=== PATIENT | female | born 2005 | race Caucasian/White ===

== ENCOUNTER 2024-12-18 01:28 | Emergency (ER) | payer OTHER, SELFPAY ==
[2024-12-18 01:30] VITALS: BP 115/79
--- NOTE | 2024-12-18 02:36 | ED.GENMED ---
History of Present Illness
General
Chief Complaint: Abdominal Symptoms
Source: patient
Exam Limitations: none
Time Seen by Provider: 12/18/24 01:35
Nursing documentation reviewed up to this point in time: agreed with
History of Present Illness
History of Present Illness:
This a pleasant 19-year-old female that presents to the emergency department after a night out drinking. She states that she was handed a drink by someone at a bar. She reports that she 'passed out 'after that. Denies any head injury. States
that she had some diffuse abdominal pain and vomiting but that has resolved. She states that she feels tired but has no other complaints at this time. She is accompanied by a friend. She does live with 3 other girls in the dorm. Denies any
previous medical history.
Review of Systems
Review of Systems
Allergies reviewed?: Yes
All Other Systems: ROS reviewed and negative except as documented in HPI and ROS
Constitutional: Reports no symptoms
EENT: Reports no symptoms
Respiratory: Reports no symptoms
Cardiac: Reports no symptoms
ABD/GI: Reports no symptoms
: Reports no symptoms
Musculoskeletal: Reports no symptoms
Skin: Reports no symptoms
Neurological: Reports no symptoms
Endocrine: Reports no symptoms
Hematologic/Lymphatic: Reports no symptoms
Psychiatric: Reports no symptoms
Phy Exam
General Physical Exam
General Presentation: mild distress and other (Somnolent)
General age: appears stated age
General Skin: warm and dry
General Habitus: normal
General Mental: alert
General Hydration: appears well hydrated
ENT Exam
ENT Exam: EOMI, pharynx normal, neck supple and normocephalic
Eye Exam
Eye Exam: PERRL, cornea clear and conjunctiva normal
Cardiovascular Exam
Cardiovascular Exam: regular rate/rhythm, no edema, no murmur and normal peripheral pulses
Pulmonary Exam
Pulmonary Exam: lungs clear, no respiratory distress, no rales, no crackles, no rhonchi, no stridor, no wheezing and no cough
Gastrointestinal Exam
Gastrointestinal Exam: normal bowel sounds, non tender, soft, no organomegaly, no pulsatile mass and non distended
Neurological Exam
Neurological Exam: alert, oriented x3, no motor deficits and speech normal
Musculoskeletal Exam
Musculoskeletal Exam: full ROM and no edema
Skin Exam
Skin Exam: normal color, warm/dry, no rash and no petechia
Psychiatric Exam
Psychiatric Exam: normal mood/affect
Course
Vital Signs
Initial and Last Documented VS:
Initial Vital Signs
Temp Pulse Resp BP Pulse Ox
98.5 F 84 16 115/79 99
12/18/24 01:30 12/18/24 01:30 12/18/24 01:30 12/18/24 01:30 12/18/24 01:30
Last Documented Vital Signs
Temp Pulse Resp BP Pulse Ox
98.5 F 84 16 115/79 99
12/18/24 01:30 12/18/24 01:30 12/18/24 01:30 12/18/24 01:30 12/18/24 01:30
*Critical Care Note
Total Time (30-74mins, 75-104mins- exclusive of procedures): Not Applicable
ED Attending Note
-
Portions of this chart may have been created with voice recognition software.� Occasional wrong word or��sound alike� substitutions may have occurred due to the inherent limitations of voice recognition software.
Discharge Plan
Departure
Referrals:
Chyna Aquino MD [Family Provider] -
Interventions
Interventions:
*General Assessment Last Done: 12/18/24 01:30
*ED COVID-19 Vaccine History Last Done: 12/18/24 01:30
Discharge Date and Time
Print Language: ESTONIAN
[2024-12-18 03:37] VITALS: BP 100/50
[2024-12-18 05:32] VITALS: BP 107/53
== END 2024-12-18 06:24 | disposition home or self-care (01) ==
LOC: EMR 01:28
PROVIDERS: EMERGENCY PHYSICIAN Student in an Organized Health Care Education/Training Program; FAMILY PHYSICIAN Pediatrics
DX: F10.129 Alcohol abuse with intoxication, unspecified (principal)
CPT/HCPCS: 99282

== ENCOUNTER 2025-10-14 09:59 | Emergency (ER) | payer OTHER, SELFPAY ==
[2025-10-14 10:00] VITALS: BP 106/83
--- NOTE | 2025-10-14 10:15 | EDRN ---
Roldan Low PA in room w/pt at this time.
--- NOTE | 2025-10-14 10:21 | ED.GENMED ---
History of Present Illness
General
Chief Complaint: Musculo-Skeletal Complaint
Source: patient
Time Seen by Provider: 10/14/25 10:07
History of Present Illness
History of Present Illness:
19-year-old female presenting to the emergency department for evaluation after experiencing right-sided rib pain in the anterolateral portion of the right chest wall just inferior to the right breast, symptoms started yesterday shortly after a
basketball game, patient does not recall any specific time where she may have injured the rib. Pain worsens with deep inspiration but also worsens to palpation and movement. She did not take anything for the pain. Denies any PE risk factors.
Denies any cough, shortness of breath, hemoptysis, lower extremity edema or any other concerns.
Past History
Past History
ED Past Medical History: Psychiatric
ED Past Surgical History: None
Social History
Tobacco: Non-smoker
Alcohol: Occasional
Drug: None
Personal: Single
Living: with roommate
Employment: Student
Review of Systems
Review of Systems
All Other Systems: ROS reviewed and negative except as documented in HPI and ROS
Phy Exam
Physical Exam
Physical Exam:
GENERAL: Alert , in no apparent distress
HEAD: Normocephalic atraumatic
EYE: conjunctiva clear
NECK: Supple
ENT: o/p clr, mmm.
CARDIAC: Regular rate and rhythm
LUNGS: Clear breath sounds bilaterally, no acute respiratory distress, no wheezes/rales/rhonchi
NEUROLOGICAL: Alert and oriented
SKIN: Warm and dry, skin intact. Chaperoned by ED RN KI: No rash/overlying erythema
MUSCULOSKELETAL: well perfused.
PSYCH: Normal and appropriate interaction.
Scores
Heart Failure Risk
Heart Failure Risk Score: Not Applicable
Heart Score for Chest Pain Patients
STEMI patient?: Not applicable
Withdrawal Assessment of Alcohol
Withdrawal Assessment Completed?: Not applicable
Course
Orders/Labs/Results
Orders:
Orders
10/14/25 10:19
CR Ribs-right 3 Vw W/pa Chest* Urgent
Comment:
Reason For Exam: right sided rib pain around breast area
Vital Signs
Initial and Last Documented VS:
Initial Vital Signs
Temp Pulse Resp BP Pulse Ox
98.0 F 89 16 106/83 98
10/14/25 10:00 10/14/25 10:00 10/14/25 10:00 10/14/25 10:00 10/14/25 10:00
Last Documented Vital Signs
Temp Pulse Resp BP Pulse Ox
98.0 F 86 16 114/75 98
10/14/25 10:00 10/14/25 10:27 10/14/25 10:27 10/14/25 10:27 10/14/25 10:27
MDM/Problems Addressed
Differential Diagnosis Includes:
Rib contusion
Muscle strain
PTX
Costochondritis
Pleurisy
PE considered however no risk factors
Shingles
MDM/Problems Addressed:
19 ER for evaluation of right-sided nontraumatic rib pain, symptoms started yesterday shortly after a basketball game the patient does not recall any specific injury. Patient is hemodynamically stable and in no acute distress. Will order x-ray.
Patient declines anything for pain. Anticipate discharge.
*Radiology
Radiology exam reviewed: radiology read reviewed
*Pulse Oximetry
SaO2: 98
Oxygen Mode of Delivery: Room air
Patient hypoxic: no
*Critical Care Note
Total Time (30-74mins, 75-104mins- exclusive of procedures): Not Applicable
Patient Management
Escalation/DeEscalation of care consider admission/obs:
Rib series without any acute abnormalities. Stable for d/c home
ED Attending Note
-
Portions of this chart may have been created with voice recognition software.� Occasional wrong word or��sound alike� substitutions may have occurred due to the inherent limitations of voice recognition software.
Discharge Plan
Departure
Patient Disposition: Home (Routine Discharge)
Date of Disposition: 10/14/25
Time of Disposition: 10:52
Patient with high blood pressure during this ER visit?: No
Discharge Problem:
Rib pain on right side
Instructions: Rib injury in adults
Interventions
Interventions:
*Risk Screen - Suicide Last Done: 10/14/25 10:00
*General Assessment Last Done: 10/14/25 10:24
*Neglect/Abuse Screening Last Done: 10/14/25 10:24
*ED- Fall Risk Assessment Last Done: 10/14/25 10:24
*ED COVID-19 Vaccine History Last Done: 10/14/25 10:24
*ED Influenza Vaccine History Last Done: 10/14/25 10:24
*Nursing Disposition Last Done: 10/14/25 11:01
ED-Musculoskeletal Assessment Last Done: 10/14/25 10:24
Discharge Date and Time
Discharge Date/Time: 10/14/25 11:01
Print Language: HONDURAN
[2025-10-14 10:27] VITALS: BP 114/75
== END 2025-10-14 11:01 | disposition home or self-care (01) ==
LOC: EMR 09:59
PROVIDERS: EMERGENCY PHYSICIAN Student in an Organized Health Care Education/Training Program
DX: R07.89 Other chest pain (principal)
CPT/HCPCS: 99283; 71101

== ENCOUNTER 2025-10-15 14:01 | Emergency (ER) | payer OTHER, SELFPAY ==
[2025-10-15 14:02] VITALS: BP 119/80
[2025-10-15 14:24] LABS: Hematocrit 39.3 % (37.0-47.0); Hemoglobin 13.0 g/dL (12.0-16.0); Mean Corp Hgb Conc. 33.1 g/dL (33.0-37.0); Mean Corpuscular Volume 92.5 fL (81.0-99.0); Nucleated Red Blood Cells % 0 %; Platelet Count 249 10^3/uL (130-400); Red Cell Dist. Width 12.6 % (11.5-14.5)
[2025-10-15 14:33] LABS: HCG, Serum Qualitative Screen Negative
[2025-10-15 14:37] LABS: ALT (SGPT) 19 U/L (0-35); AST (SGOT) 26 U/L (14-36); Albumin 4.8 g/dl (3.5-5.0); Alkaline Phosphatase 83 U/L (38-126); Blood Urea Nitrogen 8 mg/dl (7-17); Calcium 9.4 mg/dl (8.4-10.2); Carbon Dioxide 23 mmol/L (22-30); Chloride 106 mmol/L (98-107); Glucose 93 mg/dl (70-99); Lipase 85 U/L (23-300); Potassium 4.1 mmol/L (3.5-5.1); Sodium 137 mmol/L (135-145); Total Protein 7.8 g/dl (6.3-8.2); eGFR > 60.00
[2025-10-15 17:04] VITALS: BMI 22.3
--- NOTE | 2025-10-15 17:34 | ED.GENMED ---
History of Present Illness
General
Chief Complaint: Abdominal Pain
Source: patient
Exam Limitations: none
Time Seen by Provider: 10/15/25 16:39
Nursing documentation reviewed up to this point in time: agreed with
History of Present Illness
History of Present Illness:
19-year-old female presenting to the emergency department today with concerns of right sided abdominal pain. Previously had an injury that she believes to her right sided rib here yesterday after being hit while playing basketball now with pain to
the right lower abdomen. Denies any nausea vomiting diarrhea or changes in urination.
Past History
Past History
ED Past Medical History: Psychiatric
ED Past Surgical History: None
Social History
Tobacco: Non-smoker
Alcohol: Occasional
Drug: None
Personal: Single
Living: with roommate
Employment: Student
Review of Systems
Review of Systems
Allergies reviewed?: Yes
All Other Systems: ROS reviewed and negative except as documented in HPI and ROS
Phy Exam
Physical Exam
Physical Exam:
GENERAL: Alert , in no apparent distress
EYE: pupils equal and reactive
NECK: Supple, no significant adenopathy.
ENT: o/p clr, mmm.
CARDIAC: Regular rate and rhythm .
LUNGS: Clear breath sounds bilaterally, no acute respiratory distress, no wheezes/rales/rhonchi
ABDOMEN: Tender palpation throughout the right side of the abdomen maximal to the right lower quadrant. No overlying skin changes.
NEUROLOGICAL: Alert and oriented, no focal neuro deficits
SKIN: Warm and dry, skin intact.
MUSCULOSKELETAL: No edema, well perfused.
PSYCH: Normal and appropriate interaction.
Course
Orders/Labs/Results
Orders:
Orders
10/15/25 14:05
Test Result ONCE
10/15/25 14:11
CBC/With Diff [Complete Blood Count/With Diff] Urgent
CMP [Comprehensive Metabolic Panel] Urgent
Lipase Urgent
, Serum Qualitative Screen [HCG, Serum Qualitative Screen] Urgent
10/15/25 16:52
Test Result ONCE
10/15/25 16:53
CT Abd/Pel (IV only)-DH only Urgent
Comment:
Reason For Exam: right sided abd pain, trauma yesterday
10/15/25 18:22
Urinalysis Reflex To Culture Urgent
Date Specimen was Collected: 10/15/25
Time Specimen was Collected: 17:03
Urine Microscopic Reflex Cult Urgent
Abnormal Lab Results
10/15/25 10/15/25
14:11 18:22
Absolute Neuts (auto) 7.2 H 10^3/uL
(1.4-6.5)
Absolute Lymphs (auto) 1.0 L 10^3/uL
(1.2-3.4)
Neutrophils % 81.7 H %
(42.2-75.2)
Lymphocytes % 11.4 L %
(20.5-51.1)
Urine Ketones 1+ A
(Negative)
Ur Occult Blood Reflex 2+ A
(Negative)
Urine Urobilinogen 2+ A
(Neg - 1+)
Urine RBC 3-6 A /HPF
(0-2)
Urine Bacteria (Reflex) Few A
(Negative)
Urine Albumin (Reflex) 1+ A
(Neg - Trace)
10/15/25 14:11
10/15/25 14:11
Vital Signs
Initial and Last Documented VS:
Initial Vital Signs
Temp Pulse Resp BP Pulse Ox
98.2 F 85 15 119/80 98
10/15/25 14:02 10/15/25 14:02 10/15/25 14:02 10/15/25 14:02 10/15/25 14:02
Last Documented Vital Signs
Temp Pulse Resp BP Pulse Ox
98.5 F 87 18 118/75 99
10/15/25 18:09 10/15/25 20:03 10/15/25 20:03 10/15/25 20:03 10/15/25 20:03
MDM/Problems Addressed
MDM/Problems Addressed:
19-year-old female presenting to the emergency department today with concerns of right side abdominal pain after getting a right lower rib injury yesterday while playing basketball. Reproducible pain to the right lower quadrant. Concern in the
recent trauma plan for CT scan. CT scan was performed without emergent findings labs unremarkable stable for discharge at this time return precautions given.
*Pulse Oximetry
SaO2: 98
Oxygen Mode of Delivery: Room air
Patient hypoxic: no (99)
*Critical Care Note
Total Time (30-74mins, 75-104mins- exclusive of procedures): Not Applicable
ED Attending Note
-
Portions of this chart may have been created with voice recognition software.� Occasional wrong word or��sound alike� substitutions may have occurred due to the inherent limitations of voice recognition software.
Discharge Plan
Departure
Patient Disposition: Home (Routine Discharge)
Date of Disposition: 10/15/25
Time of Disposition: 19:54
Patient with high blood pressure during this ER visit?: No
Condition: Good
Covid-19: Not Applicable
Discharge Problem:
Abdominal pain
Instructions: Abdominal Pain
Prescriptions:
New
ondansetron 4 mg tablet,disintegrating
4 mg PO Q6H PRN (Reason: nausea and vomiting) Qty: 7 0RF
No Action
ibuprofen [Advil] 200 mg Tablet
400 mg PO DAILYPRN PRN (Reason: abdominal pain)
escitalopram oxalate 10 mg tablet
10 mg PO DAILY
Referrals:
Denia Noble MD [Family Provider, Pediatric Medicine]
Terrell Thomas DO [Active, Gastroenterology] - Follow up in 5-7 days
Activity Restrictions/Additional Instructions:
You came to the emergency department today with concerns of abdominal pain after traumatic injury. Here you had a reassuring assessment with no signs of emergent process. Please follow closely with GI for the intermittent vomiting that you are
experiencing. Return for any worsening, new or concerning symptoms.
Interventions
Interventions:
*Risk Screen - Suicide Last Done: 10/15/25 14:02
*General Assessment Last Done: 10/15/25 14:02
*Neglect/Abuse Screening Last Done: 10/15/25 14:02
*ED- Fall Risk Assessment Last Done: 10/15/25 20:04
*ED COVID-19 Vaccine History Last Done: 10/15/25 14:02
*ED Influenza Vaccine History Last Done: 10/15/25 14:02
*Nursing Disposition Last Done: 10/15/25 20:04
TB-Veloqk-Kajfmbrgqy Assessment Last Done: 10/15/25 17:04
Discharge Date and Time
Discharge Date/Time: 10/15/25 20:05
Print Language: MALTESE
[2025-10-15 18:09] VITALS: BP 122/84
[2025-10-15 18:31] LABS: Urine Character Clear (Clear)
[2025-10-15 18:45] LABS: Urine White Cell 0-2 /HPF (0-5)
[2025-10-15 20:03] VITALS: BP 118/75
== END 2025-10-15 20:05 | disposition home or self-care (01) ==
LOC: EMR 14:01
PROVIDERS: Physician Assistant; EMERGENCY PHYSICIAN Emergency Medicine; FAMILY PHYSICIAN Pediatrics
DX: R10.31 Right lower quadrant pain (principal)
CPT/HCPCS: 99284; 74177; 80053; 81003; 81015; 83690; 84703; 85025; Q9967